=== PATIENT | female | born 1940 | race Caucasian/White ===

== ENCOUNTER 2020-04-01 14:47 | Emergency (ER) | payer BC ==
--- NOTE | 2020-04-01 16:38 | EDM.PDOC ---
<Matt Kinsey - Last Filed: 04/01/20 18:50> ED HPI GENERAL MEDICAL PROBLEM - General Chief Complaint: Genitourinary Problem Stated Complaint: INFECTION Time Seen by Provider: 04/01/20 16:33 - Related Data Allergies Allergy/AdvReac Type Severity Reaction Status Date / Time No Known Allergies Allergy Verified 04/01/20 15:08 Home Meds: Home Meds NK [No Known Home Meds] 04/01/20 [History] Course - Re-Assessments/Exams Free Text/Narrative Re-Assessment/Exam: 04/01/20 17:31 UA shows likely infection as well as RBCs. Patient will put on topical Mycolog, given 1 dose of oral Diflucan and started on Macrodantin twice daily. She is going to [place] in a couple of days and will recheck when she gets there. Departure - Departure Time of Disposition: 17:44 Disposition: Home, Self-Care 01 Clinical Impression: UTI, Urinary tract infectious disease, Vaginitis and vulvovaginitis, unspecified - Discharge Information Instructions: Urinary Tract Infection, Adult Referrals: PCP,None [Primary Care Provider] - Forms: ED Department Discharge Care Plan Goals: Take antibiotic twice daily as prescribed and use topical cream for irritation. Recheck when in [place] as soon as possible. Return sooner if worsening despite treatment. <Mirian Gramajo - Last Filed: 04/03/20 07:09> ED HPI GENERAL MEDICAL PROBLEM - General Source of Information: Reports: Patient History Limitations: Reports: No Limitations - History of Present Illness INITIAL COMMENTS - FREE TEXT/NARRATIVE: pt thought she had a yeast infection and was treating herself with monostat. She had extream itching and was using a rough towel to relief that. She now feels like she is swollen by the ureathra and has burning on urination. She has passed a small amount of blood in the last 2 days. She has no fever. She feels like the area is very raw. 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: Musculoskeletal History: Reports: Osteoporosis Dermatologic History: Reports: Eczema - Infectious Disease History Infectious Disease History: Reports: Mumps, Shingles - Past Surgical History Head Surgeries/Procedures: Reports: None HEENT Surgical History: Reports: None Cardiovascular Surgical History: Reports: None GI Surgical History: Reports: Appendectomy Female Surgical History: Reports: None Musculoskeletal Surgical History: Reports: None Dermatological Surgical History: Reports: None Social & Family History - Tobacco Use Tobacco Use Status *Q: Never Tobacco User Second Hand Smoke Exposure: No - Caffeine Use Caffeine Use: Reports: Coffee - Recreational Drug Use Recreational Drug Use: No ED ROS GENERAL - Review of Systems Review Of Systems: See Below Constitutional: Reports: No Symptoms HEENT: Reports: No Symptoms Respiratory: Reports: No Symptoms Cardiovascular: Reports: No Symptoms Endocrine: Reports: No Symptoms GI/Abdominal: Reports: No Symptoms : Reports: Other (pt has swelling around the urethra and she feels like she may not be emptying her bladder. ) Musculoskeletal: Reports: No Symptoms Skin: Reports: No Symptoms ED EXAM, RENAL/ - Physical Exam Exam: See Below Text/Narrative:: pt arrived with a history of burning on urination and feeling like she may not be emptying her bladder. She feels like there are open areas around the reji area. Exam Limited By: No Limitations General Appearance: Alert, Anxious, Moderate Distress Ears: Normal TMs Nose: Normal Inspection Throat/Mouth: Normal Inspection Head: Atraumatic Neck: Normal Inspection Respiratory/Chest: No Respiratory Distress Cardiovascular: Regular Rate, Rhythm GI/Abdominal: Soft, Non-Tender, Other (bladder may be distended) (Female) Exam: Other (pt has swelling around the urethra and may have developed a hematoma around the site. Her periarea is very swollen and irritated. There are some open areas on the left labia. ) Rectal (Female) Exam: Deferred Back Exam: Normal Inspection Extremities: Normal Inspection Neurological: Alert, Oriented, Normal Cognition Course - Vital Signs Last Recorded V/S: Last Vital Signs Temp 36.5 C 04/01/20 15:14 Pulse 89 04/01/20 16:28 Resp 16 04/01/20 15:14 BP 165/95 H 04/01/20 16:28 Pulse Ox 95 04/01/20 16:28 - Orders/Labs/Meds Labs: Laboratory Tests 01/19/21 01/19/21 01/19/21 Range/Units 16:24 16:48 16:48 WBC 7.0 (4.5-11.0) K/uL RBC 5.18 (3.30-5.50) M/uL Hgb 15.0 (12.0-15.0) g/dL Hct 46.6 (36.0-48.0) % MCV 90 (80-98) fL MCH 29 (27-31) pg MCHC 32 (32-36) % Plt Count 113 L (150-400) K/uL Neut % (Auto) 60 (36-66) % Lymph % (Auto) 26 (24-44) % [place] % (Auto) 11 H (2-6) % Eos % (Auto) 2 (2-4) % Baso % (Auto) 0 (0-1) % Sodium 141 (140-148) mmol/L Potassium 4.0 (3.6-5.2) mmol/L Chloride 103 (100-108) mmol/L Carbon Dioxide 30 (21-32) mmol/L Anion Gap 7.7 (5.0-14.0) mmol/L BUN 15 (7-18) mg/dL Creatinine 0.9 (0.6-1.0) mg/dL Est Cr Clr Drug Dosing 40.74 mL/min Estimated GFR (MDRD) > 60 (>60) Glucose 92 (74-106) mg/dL Calcium 9.2 (8.5-10.1) mg/dL Total Bilirubin 0.5 (0.2-1.0) mg/dL AST 23 (15-37) U/L ALT 23 (12-78) U/L Alkaline Phosphatase 79 (46-116) U/L Total Protein 7.0 (6.4-8.2) g/dL Albumin 3.6 (3.4-5.0) g/dL Globulin 3.4 (2.3-3.5) g/dL Albumin/Globulin Ratio 1.1 L (1.2-2.2) Urine Color Yellow (YELLOW) Urine Appearance Cloudy A (CLEAR) Urine pH 5.0 (5.0-8.0) Ur Specific [place] 1.010 (1.008-1.030) Urine Protein Trace H (NEGATIVE) mg/dL Urine Glucose (UA) Negative (NEGATIVE) mg/dL Urine Ketones Negative (NEGATIVE) mg/dL Urine Occult Blood Large H (NEGATIVE) Urine Nitrite Negative (NEGATIVE) Urine Bilirubin Negative (NEGATIVE) Urine Urobilinogen 0.2 (0.2-1.0) EU/dL Ur Leukocyte Esterase Large H (NEGATIVE) Urine RBC 10-20 H (0-5) Urine WBC 40-50 H (0-5) Ur Epithelial Cells Rare Urine Bacteria Many Urine Mucus Not seen Meds: Medications Discontinued Medications Generic Name Dose Route Start Last Admin Trade Name Freq PRN Reason Stop Dose Admin Fluconazole 150 mg 04/01/20 17:13 04/01/20 17:37 Diflucan PO 04/01/20 17:14 150 mg ONETIME ONE Administration Sepsis Event Note (ED) - Evaluation Sepsis Screening Result: No Definite Risk
[2020-04-01] MEDS ORDERED: Fluconazole 150 MG Tab PO ONE (17:13)
== END 2020-04-01 17:44 | disposition home or self-care (01) ==
LOC: JP.ED 14:47
DX: B37.3 Candidiasis of vulva and vagina (principal); N39.0 Urinary tract infection, site not specified; I10 Essential (primary) hypertension
CPT/HCPCS: 36415; 80053; 81001; 85025; 99283; A9270-GY